=== PATIENT | male | born 1995 | race Caucasian/White ===

== ENCOUNTER 2022-09-01 19:53 | Emergency (ER) | payer SELFPAY ==
[2022-09-01 20:10] VITALS: BP 133/75; PULSE 85; RESP 18; TEMP 36.7; O2SAT 100
--- NOTE | 2022-09-01 20:25 | W.ED.GENAD ---
Discharge Plan Disposition Patient Disposition: Home Condition: Good Discharge Details Clinical Impression: Lumbago Primary Care Provider: Unknown,Unknown ED Provider: Beny Carrington Home Meds and New Rx's Prescriptions: New cyclobenzaprine 10 mg tablet 10 mg PO TID Qty: 14 0RF lidocaine [Lidoderm] 5 % adhesive patch,medicated 1 patch Topical Q24H Qty: 15 0RF Discharge Instructions Instructions: Low Back Strain (ED) Additional Instructions: At this time your signs and symptoms are clinically consistent with a back sprain. This can cause significant pain and take a fair bit of time to heal. I expect 1 to 2 months for potential resolution. In the meantime do not lift anything greater than 5 pounds for the next 2 weeks. Avoid any significant vigorous physical activity. Perform easy gentle regular activities at home without any significant bending or lifting. You have been given a prescription for Lidoderm patch. If your insurance does not cover this you can get [id number] Lidoderm patches at 4% which are almost just as effective. Please take the Flexeril as directed but do not take it when driving or operating any vehicles or heavy machinery, swimming, taking long baths, or operating firearms. Please use a heating pad as often as possible on your back. Perform daily gentle stretches on your back. If you notice any worsening of your symptoms, or any new symptoms such as vomiting, diarrhea, fever, chills, shortness of breath, chest pain, numbness or tingling in your groin or legs, weakness in your legs, loss of control for your bowels or bladder, or fainting , please return immediately to the emergency department for reevaluation. Please follow up with your primary care provider as soon as possible for reassessment and reevaluation. As always, it was a pleasure participating in your medical care today. 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 Patient states that about 4 5 days ago he had a notable increase in the amount of stacking in the unloading he had been doing, and about 2 to 3 days ago he developed notable left lower back pain, spasm, pain with bending over/forward. Pain is continued, made worse with movement and bending. Improved with rest. Patient denies any saddle anesthesia, numbness or tingling in the groin, change in sensation when wiping. Patient denies any change in sensation during sexual intercourse, difficulty achieving or maintaining an erection or ejaculation, bowel or bladder incontinence, leakage, or retention. Patient denies any weakness in the lower extremities, atypical falls or imbalance. Exam demonstrates evidence of mild left lower paraspinal tenderness and notable left paraspinal spasm. No midline tenderness. Symptoms at this time appear clinically consistent with mild back sprain and paraspinal spasm. Patient states that he is had notable anxiety and anger associated with taking NSAIDs and steroids. We will avoid those. Will recommend heating pad, cyclobenzaprine, Lidoderm patch, and lifting restrictions. No red flags consistent concerning for cauda equina syndrome, spinal epidural abscess, or spinal epidural hematoma clinically or by exam. I have extensively reviewed the treatment plan and discharge instructions with the patient. I have addressed all patient concerns at this time. The patient was made aware of what symptoms to monitor for that would warrant a return to the emergency department. Discussed the plan with the patient, they demonstrate verbal understanding and agreement with our assessment and plan at this time. The documentation in this chart was dictated using [employer] dictation software. Please excuse any dictation errors. HPI General Date/Time Provider Initiated Documentation: 09/01/22 20:25. 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 Patient states that about 4 5 days ago he had a notable increase in the amount of stacking in the unloading he had been doing, and about 2 to 3 days ago he developed notable left lower back pain, spasm, pain with bending over/forward. Pain is continued, made worse with movement and bending. Improved with rest. Patient denies any saddle anesthesia, numbness or tingling in the groin, change in sensation when wiping. Patient denies any change in sensation during sexual intercourse, difficulty achieving or maintaining an erection or ejaculation, bowel or bladder incontinence, leakage, or retention. Patient denies any weakness in the lower extremities, atypical falls or imbalance. Related Data Home Medications Medication Instructions Recorded Confirmed cyclobenzaprine 10 mg tablet 10 mg PO TID #14 tabs 09/01/22 lidocaine 5 % topical patch 1 patch topical Q24H #15 ea 09/01/22 (Lidoderm) Previous Rx's Medication Instructions Recorded cyclobenzaprine 10 mg tablet 10 mg PO TID #14 tabs 09/01/22 lidocaine 5 % topical patch 1 patch topical Q24H #15 ea 09/01/22 (Lidoderm) General Stated Complaint: Nk/Back Pain LENNIE: 4 Review of Systems All systems reviewed & are unremarkable except as noted in HPI and below PFSH All Active Problems Lumbago (Acute) Social History Smoking/Tobacco Use Status: Current every day Tobacco Type: cigarettes Smoking risk assessment performed?: Yes Drug use: Daily Substance use type: marijuana Do you feel safe at home: Yes Do you feel safe in your relationship?: Yes Exam Narrative Exam Narrative: 1.Const: Well-nourished, Well-developed, appearing stated age 2.Eyes: PERRL, no conjunctival injection, and symmetrical lids. 3.ENT: Atraumatic external nose and ears. Moist MM. Neck: Symmetric, trachea midline, No thyromegaly. 4.CVS: +S1/S2, No murmurs or gallops. Peripheral pulses 2+ and equal in all extremities. Brisk capillary refill in all extremities. 5.RESP: Unlabored respiratory effort. Clear to auscultation bilaterally. No wheezes rales or rhonchi 6.GI: Soft, Nontender/Nondistended, No hepatosplenomegaly. No guarding or rebound. 7.MSK: Normocephalic/Atraumatic, Extremities w/o deformity or ttp No cyanosis or clubbing, Normal movement of all extremities No midline tenderness to palpation over the CTLS spine. Mild left-sided lower paraspinal tenderness. Normal ROM in flexion, extension, side bend, and rotation. Patient has +5 out of 5 strength in the lower extremities in dorsiflexion and plantarflexion, knee flexion and extension, hip flexion and extension. Normal strength for dorsiflexion and plantar flexion of the great toe bilaterally. There is +2 over 2 dorsalis pedis pulses bilaterally. There is normal sensation to the skin with light touch at the foot, knee, and hip. Normal saddle sensation. Good sensation over the deep sural nerve area bilaterally. Rectal exam demonstrates good rectal tone. Perirectal sensation. Reflexes are +2 over 4 in the patellar reflex bilaterally. +5 out of 5 strength in the medial, ulnar, radial nerve distribution bilaterally in the hands as well as intact light touch sensation to these dermatomes on the hands 8.Skin: Warm, Dry. No rashes or lesions. 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 Sensation grossly intact, no focal neurologic deficits. 10.Psych: (AAO) x3. Appropriate mood and affect Course Vital Signs Vital signs: Vital Signs Temperature 36.7 C 09/01/22 20:10 Pulse 85 09/01/22 20:10 Respiratory Rate 18 09/01/22 20:10 Blood Pressure 133/75 09/01/22 20:10 Pulse Oximetry 100 09/01/22 20:10 Temperature 36.7 C 09/01/22 20:10 Pulse 85 09/01/22 20:10 Respiratory Rate 18 09/01/22 20:10 Respiratory Effort 09/01/22 20:14 Blood Pressure 133/75 09/01/22 20:10 Blood Pressure Position Standing 09/01/22 20:10 Pulse Oximetry 100 09/01/22 20:10 Oxygen Delivery Method Room Air 09/01/22 20:10 Oxygen Flow Rate 0 09/01/22 20:10 Pain Level 4 09/01/22 20:10
[2022-09-01] MEDS: Cyclobenzaprine 10 MG TAB, 3 TABS/BTL PO (20:32)
[2022-09-01] MEDS: Lidocaine 5% Patch 1 PATCH TP (20:32)
== END 2022-09-01 20:31 | disposition home or self-care (01) ==
PROVIDERS: Emergency Provider Student in an Organized Health Care Education/Training Program
DX: M54.50 Low back pain, unspecified (principal); M62.830 Muscle spasm of back; R45.4 Irritability and anger; F41.9 Anxiety disorder, unspecified
CPT/HCPCS: 99283; 99284

== ENCOUNTER 2022-11-25 20:26 | Emergency (ER) | payer SELFPAY ==
[2022-11-25 20:32] VITALS: BP 132/82; PULSE 99; RESP 20; TEMP 36.9; O2SAT 96
--- NOTE | 2022-11-25 20:39 | W.ED.GENAD ---
Discharge Plan Disposition Patient Disposition: Home Condition: Good Discharge Details Clinical Impression: URI (upper respiratory infection), Nausea Primary Care Provider: Unknown,Unknown ED Provider: Beny Carrington Home Meds and New Rx's Prescriptions: No Action cyclobenzaprine 10 mg tablet 10 mg PO TID Qty: 14 0RF lidocaine [Lidoderm] 5 % adhesive patch,medicated 1 patch Topical Q24H Qty: 15 0RF Discharge Instructions Instructions: Upper Respiratory Infection (ED) Additional Instructions: At this time your symptoms appear consistent with a viral upper respiratory infection causing your symptoms. Some of the nausea may have been from the donut you ate, but I suspect it is more likely to be from the virus. Please take the Zofran only as needed for nausea. Take Tylenol and Motrin for headache. Please continue to drink plenty of fluids. If you notice any worsening of your symptoms, or any new symptoms such as vomiting, diarrhea, fever, chills, shortness of breath, chest pain, numbness, weakness, or fainting , please return immediately to the emergency department for reevaluation. Please follow up with your primary care provider as soon as possible for reassessment and reevaluation. As always, it was a pleasure participating in your medical care today. Stand Alone Forms: Work Release Discharge Data Discharge Date/Time-TO BE ENTERED AT DEPARTURE: 11/25/22 20:52 Medical Decision Making 23-year-old male presents today for evaluation of nausea, runny nose congestion mild cough. Patient states that symptoms have been present for the last 12 hours after he ate a moldy donut. He has had no vomiting or diarrhea. He has been drinking plenty of fluids. He denies any chest pain or shortness of breath. He denies any productivity to his cough. He does work at [employer]. He denies any back pain or neck stiffness. He denies the worst headache of his life and describes it as status just a mild achiness. No other complaints at this time. No other modifying factors. Exam demonstrates well-appearing male, no meningeal signs, clear lungs, nontender abdomen. I did offer IV and fluids, but the patient states he feels well-hydrated. Patient is requesting a work note. Symptoms appear consistent with a mild viral upper respiratory infection. Inconsistent with meningitis or pneumonia or acute surgical pathology in the abdominal region. We will test for flu COVID and RSV, give work note, and give Zofran for home use. Recommend NSAIDs and plenty fluids and rest. Discussed red flags for which to return. I have extensively reviewed the treatment plan and discharge instructions with the patient. I have addressed all patient concerns at this time. The patient was made aware of what symptoms to monitor for that would warrant a return to the emergency department. Discussed the plan with the patient, they demonstrate verbal understanding and agreement with our assessment and plan at this time. The documentation in this chart was dictated using [employer] dictation software. Please excuse any dictation errors. COVID flu and RSV are negative. HPI General Date/Time Provider Initiated Documentation: 11/25/22 20:28. HPI Narrative: 23-year-old male presents today for evaluation of nausea, runny nose congestion mild cough. Patient states that symptoms have been present for the last 12 hours after he ate a moldy donut. He has had no vomiting or diarrhea. He has been drinking plenty of fluids. He denies any chest pain or shortness of breath. He denies any productivity to his cough. He does work at [employer]. He denies any back pain or neck stiffness. He denies the worst headache of his life and describes it as status just a mild achiness. No other complaints at this time. No other modifying factors. Related Data Home Medications Medication Instructions Recorded Confirmed cyclobenzaprine 10 mg tablet 10 mg PO TID #14 tabs 09/01/22 lidocaine 5 % topical patch 1 patch topical Q24H #15 ea 09/01/22 (Lidoderm) Previous Rx's Medication Instructions Recorded cyclobenzaprine 10 mg tablet 10 mg PO TID #14 tabs 09/01/22 lidocaine 5 % topical patch 1 patch topical Q24H #15 ea 09/01/22 (Lidoderm) General Stated Complaint: GenMedical LENNIE: 4 Review of Systems All systems reviewed & are unremarkable except as noted in HPI and below PFSH All Active Problems URI (upper respiratory infection) (Acute) Nausea (Acute) Social History Smoking/Tobacco Use Status: Current every day Tobacco Type: cigarettes Smoking risk assessment performed?: Yes Drug use: Daily Substance use type: marijuana Do you feel safe at home: Yes Do you feel safe in your relationship?: Yes Exam Narrative Exam Narrative: 1.Const: Well-nourished, Well-developed, appearing stated age 2.Eyes: PERRL, no conjunctival injection, and symmetrical lids. 3.ENT: Atraumatic external nose and ears. Moist MM. Neck: Symmetric, trachea midline, No thyromegaly. Patient demonstrates good movement of cervical neck. There is no nuchal rigidity, no nuchal tenderness. Patient is able to flex the neck without any difficulty or significant pain. Negative Kernig's and Brudzinski sign. 4.CVS: +S1/S2, No murmurs or gallops. Peripheral pulses 2+ and equal in all extremities. Brisk capillary refill in all extremities. 5.RESP: Unlabored respiratory effort. Clear to auscultation bilaterally. No wheezes rales or rhonchi 6.GI: Soft, Nontender/Nondistended, No hepatosplenomegaly. No guarding or rebound. 7.MSK: Normocephalic/Atraumatic, Extremities w/o deformity or ttp No cyanosis or clubbing, Normal movement of all extremities 8.Skin: Warm, Dry. No rashes or lesions. 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 Sensation grossly intact, no focal neurologic deficits. 10.Psych: (AAO) x3. Appropriate mood and affect Course Vital Signs Vital signs: Vital Signs Temperature 36.9 C 11/25/22 20:32 Pulse 99 H 11/25/22 20:32 Respiratory Rate 20 11/25/22 20:32 Blood Pressure 132/82 11/25/22 20:32 Pulse Oximetry 96 11/25/22 20:32 Temperature 36.9 C 11/25/22 20:32 Temperature Source Oral 11/25/22 20:32 Pulse 99 H 11/25/22 20:32 Respiratory Rate 20 11/25/22 20:32 Respiratory Effort Normal, Non-Labored 11/25/22 20:36 Blood Pressure 132/82 11/25/22 20:32 Blood Pressure Position Sitting 11/25/22 20:32 Pulse Oximetry 96 11/25/22 20:32 Oxygen Delivery Method Room Air 11/25/22 20:32 Oxygen Flow Rate 0 11/25/22 20:32 Pain Level 0 11/25/22 20:32 PAWSS Have you Been Recently Intoxicated or Drunk Within the Last 30 days?: No Have you Ever Experienced Previous Episodes of Alcohol Withdrawal?: No Have you ever Experienced Withdrawal Seizures?: No Have you ever Experienced Delirium Tremens(DT)s?: No Have you ever undergone Alcohol Rehabilitation Treatment (i.e, inpt ot outpatient treatment programs)?: No Have you ever Experienced Blackouts?: No Have you ever Combined Alcohol with other Downers within the last 90 days?: No Have you ever Combined Alcohol with any other Substance of Abuse during the last 90 days?: No Positive Blood Alcohol level on Presentation? [PCS.BAL]: No Evidence of Increased Autonomic Activity (i.e. HR>120, tremor, sweating, agitation, nausea)?: No Result: 0
[2022-11-25 20:48] VITALS: RESP 18
[2022-11-25] MEDS: Ondansetron O.D.T. 4 MG TABEF, 3 TABS/BTL PO (20:51)
[2022-11-25 21:26] LABS: COVID-19 PCR Negative (Negative); Influenza A PCR Negative (Negative); Influenza B PCR Negative (Negative); RSV PCR Negative (Negative)
[2022-11-25 21:28] LABS: Source Nasopharynx
== END 2022-11-25 20:52 | disposition home or self-care (01) ==
PROVIDERS: Emergency Provider Student in an Organized Health Care Education/Training Program
DX: J06.9 Acute upper respiratory infection, unspecified (principal); F17.210 Nicotine dependence, cigarettes, uncomplicated; R11.0 Nausea; Z20.822 Contact with and (suspected) exposure to COVID-19
CPT/HCPCS: 87637; 99283; 99284